=== PATIENT | female | born 1970 | race Caucasian/White ===

== ENCOUNTER 2017-06-14 12:28 | Emergency (ER) | payer BC, MEDICAID ==
--- NOTE | 2017-06-14 13:13 | ER Document Report ---
ED General - General Chief Complaint: Abdominal Pain Stated Complaint: ABDOMINAL PAIN Time Seen by Provider: 06/14/17 13:01 Mode of Arrival: Ambulatory Information source: Patient Notes: 46-year-old female history of cholecystectomy presents with complaint of right upper quadrant abdominal pain. Patient denies any fevers or chills admits to nausea TRAVEL OUTSIDE OF THE [place] IN LAST 30 DAYS: No - HPI Onset: Other - months Onset/Duration: Persistent Quality of pain: Achy Severity: Mild Pain Level: 1 Associated symptoms: None Exacerbated by: Food Relieved by: Denies Similar symptoms previously: Yes Recently seen / treated by doctor: No - Related Data Allergies/Adverse Reactions: No Known Drug Allergies Allergy (Unknown, Verified 06/14/17 12:36) Alexander Fuzz Allergy (Intermediate, Uncoded 06/14/17 12:36) Rash, itching Past Medical History - Social History Smoking Status: Never Smoker Cigarette use (# per day): No Chew tobacco use (# tins/day): No Smoking Education Provided: No Family History: Reviewed & Not Pertinent - Past Medical History Cardiac Medical History: Reports: Hx Hypertension - PIH - 160/92 at preop Denies: Hx Coronary Artery Disease, Hx Heart Attack Pulmonary Medical History: Reports: Hx Asthma Denies: Hx Bronchitis, Hx COPD, Hx Pneumonia Neurological Medical History: Denies: Hx Cerebrovascular Accident, Hx Seizures Renal/ Medical History: Denies: Hx Peritoneal Dialysis Musculoskeltal Medical History: Reports Hx Arthritis - Fingers, knees Past Surgical History: Denies: Hx Pacemaker - Immunizations Hx Diphtheria, Pertussis, Tetanus Vaccination: Yes Hx Pneumococcal Vaccination: 12/20/13 Review of Systems - Review of Systems Notes: REVIEW OF SYSTEMS: CONSTITUTIONAL : Denies fever, chills, or sweats. Denies recent illness. EENT: Denies eye, ear, throat, or mouth pain or symptoms. Denies nasal or sinus congestion or discharge. Denies throat, tongue, or mouth swelling or difficulty swallowing. CARDIOVASCULAR: Denies chest pain. Denies palpitations or racing or irregular heart beat. Denies ankle edema. RESPIRATORY: Denies cough, cold, or chest congestion. Denies shortness of breath, difficulty breathing, or wheezing. GASTROINTESTINAL: admits to abd pain GENITOURINARY: Denies difficulty urinating, painful urination, burning, frequency, blood in urine, or discharge. MUSCULOSKELETAL: Denies back or neck pain or stiffness. Denies joint pain or swelling. SKIN: Denies rash, lesions or sores. HEMATOLOGIC : Denies easy bruising or bleeding. LYMPHATIC: Denies swollen, enlarged glands. NEUROLOGICAL: Denies confusion or altered mental status. Denies passing out or loss of consciousness. Denies dizziness or lightheadedness. Denies headache. Denies weakness or paralysis or loss of use of either side. Denies problems with gait or speech. Denies sensory loss, numbness, or tingling. Denies seizures. PSYCHIATRIC: Denies anxiety or stress. Denies depression, suicidal ideation, or homicidal ideation. ALL OTHER SYSTEMS REVIEWED AND NEGATIVE. Dictation was performed using [employer] voice recognition software PHYSICAL EXAMINATION: GENERAL: Well-appearing, well-nourished and in no acute distress. HEAD: Atraumatic, normocephalic. EYES: Pupils equal round and reactive to light, extraocular movements intact, sclera anicteric, conjunctiva are normal. ENT: Nares patent, oropharynx clear without exudates. Moist mucous membranes. NECK: Normal range of motion, supple without lymphadenopathy LUNGS: Breath sounds clear to auscultation bilaterally and equal. No wheezes rales or rhonchi. HEART: Regular rate and rhythm without murmurs ABDOMEN: Soft, right flank pain Musculoskeletal: Normal range of motion, no pitting or edema. No cyanosis. NEUROLOGICAL: Cranial nerves grossly intact. Normal speech, normal gait. Normal sensory, motor exams PSYCH: Normal mood, normal affect. SKIN: Warm, Dry, normal turgor, no rashes or lesions noted. Physical Exam - Vital signs Vitals: Temp Pulse Resp BP Pulse Ox 98.5 F 79 20 185/116 H 99 06/14/17 12:37 06/14/17 12:37 06/14/17 12:37 06/14/17 12:37 06/14/17 12:37 Course - Re-evaluation Re-evalutation: 06/14/17 14:41 Lab work noted no significant abnormality except for hematuria, CT is pending at this time. 06/14/17 15:07 CT noted no acute abnormality 06/14/17 15:24 I believe this may be secondary to scar tissue postsurgical. Patient will be discharged to follow-up with surgical After performing a Medical Screening Examination, I estimate there is LOW risk for ACUTE APPENDICITIS, BOWEL OBSTRUCTION, ACUTE CHOLECYSTITIS, PERFORATED DIVERTICULITIS, INCARCERATED HERNIA, PANCREATITIS, PELVIC INFLAMMATORY DISEASE, PERFORATED ULCER, ECTOPIC , or TUBO-OVARIAN ABSCESS, thus I consider the discharge disposition reasonable. Also, there is no evidence or peritonitis , sepsis, or toxicity. I have reevaluated this patient multiple times and no significant life threatening changes are noted. The patient and I have discussed the diagnosis and risks, and we agree with discharging home with close follow-up with the understanding that symptoms and presentations can change. We also discussed returning to the Emergency Department immediately if new or worsening symptoms occur. We have discussed the symptoms which are most concerning (e.g., bloody stool, fever, changing or worsening pain, vomiting) that necessitate immediate return. - Vital Signs Vital signs: Temp Pulse Resp BP Pulse Ox 98.5 F 79 20 185/116 H 99 06/14/17 12:37 06/14/17 12:37 06/14/17 12:37 06/14/17 12:37 06/14/17 12:37 - Laboratory Result Diagrams: 06/14/17 13:25 06/14/17 13:25 Laboratory results interpreted by me: 06/14/17 13:25 Urine Protein 100 H Urine Blood LARGE H - Diagnostic Test Radiology reviewed: Image reviewed, Reports reviewed - no acute abnotrmality Discharge - Discharge Clinical Impression: RUQ abdominal pain Condition: Stable Disposition: HOME, SELF-CARE Instructions: Abdominal Pain ([facility]) Referrals: DONAVAN VYAS MD [ACTIVE STAFF] - Follow up tomorrow
[2017-06-14 13:38] LABS: ABSOLUTE BASOPHILS # (AUTO) 0.1 10^3/uL (0.0-0.2); ABSOLUTE EOSINOPHILS # (AUTO) 0.2 10^3/uL (0.0-0.6); ABSOLUTE LYMPHOCYTES (AUTO) 3.4 10^3/uL (0.5-4.7); ABSOLUTE MONOCYTES (AUTO) 0.5 10^3/uL (0.1-1.4); BASOPHILS % (AUTO) 0.8 % (0-2); EOSINOPHILS % (AUTO) 2.6 % (0-6); HEMATOCRIT 41.1 % (36.0-47.0); HEMOGLOBIN 14.1 g/dL (12.0-15.5); HGB HCT DIFFERENCE 1.2; LYMPHOCYTES % (AUTO) 36.5 % (13-45); MEAN CORPUSCULAR HEMOGLOBIN 31.2 pg (27.0-33.4); MEAN CORPUSCULAR HGB CONC 34.2 g/dL (32.0-36.0); MEAN CORPUSCULAR VOLUME 91 fl (80-97); MONOCYTES % (AUTO) 5.8 % (3-13); RED BLOOD COUNT 4.51 10^6/uL (3.72-5.28); RED CELL DISTRIBUTION WIDTH 13.1 % (11.5-14.0); SEGMENTED NEUTROPHILS % (AUTO) 54.3 % (42-78); WHITE BLOOD COUNT 9.2 10^3/uL (4.0-10.5)
[2017-06-14 13:44] LABS: APPEARANCE,URINE CLEAR; BILIRUBIN,URINE NEGATIVE (NEGATIVE); GLUCOSE, URINE NEGATIVE (NEGATIVE); KETONES,URINE NEGATIVE (NEGATIVE); LEUKOCYTE ESTERASE,URINE NEGATIVE (NEGATIVE); NITRITE,URINE NEGATIVE (NEGATIVE); PROTEIN,URINE 100 mg/dL (NEGATIVE); URINE SPECIFIC GRAVITY 1.004; UROBILINOGEN,URINE NEGATIVE mg/dL (<2.0)
[2017-06-14 13:57] LABS: ALANINE AMINOTRANSFERASE 33 U/L (9-52); ALBUMIN 4.2 g/dL (3.5-5.0); ALKALINE PHOSPHATASE 66 U/L (38-126); ANION GAP 10 (5-19); ASPARTATE AMINO TRANSFERASE 26 U/L (14-36); BILIRUBIN,DIRECT 0.3 mg/dL (0.0-0.4); BILIRUBIN,TOTAL 0.5 mg/dL (0.2-1.3); BLOOD UREA NITROGEN 12 mg/dL (7-20); CALCIUM 9.1 mg/dL (8.4-10.2); CARBON DIOXIDE 27 mmol/L (22-30); CHLORIDE 105 mmol/L (98-107); CREATININE RESULT 0.65 mg/dL (0.52-1.25); GLUCOSE 82 mg/dL (75-110); LIPASE 115.8 U/L (23-300); POTASSIUM 4.1 mmol/L (3.6-5.0); SODIUM 141.6 mmol/L (137-145); TOTAL PROTEIN 7.7 g/dL (6.3-8.2)
--- NOTE | 2017-06-14 14:57 | RADIOLOGY REPORT (SQ) ---
EXAM DESCRIPTION: CT LTD RENAL STONE PROTOCOL ON COMPLETED DATE/TIME: 06/14/2017 2:40 pm REASON FOR STUDY: hematura COMPARISON: None. TECHNIQUE: CT scan of the abdomen and pelvis performed without intravenous or oral contrast. Images reviewed with lung, soft tissue, and bone windows. Reconstructed coronal and sagittal MPR images revi ewed. All images stored on PACS. All CT scanners at this facility use dose modulation, iterative reconstruction, and/or weight based d osing when appropriate to reduce radiation dose to as low as reasonably achievable (ALARA). [facility]: Dose Right [facility]: CareDose [facility]: Dose Right [facility]: Teradose 4D [facility]: Smart Technologies RADIATION DOSE: Up-to-date CT equipment and radiation dose reduction techniques were employed. CTDIv ol: 13.8 mGy. DLP: 675 mGy-cm.mGy. LIMITATIONS: None. FINDINGS: LOWER CHEST: No significant findings. No nodules or infiltrates. NON-CONTRASTED LIVER, SPLEEN, ADRENALS: Evaluation limited by lack of IV contrast. No identified sign ificant masses. PANCREAS: No masses. No peripancreatic inflammatory changes. GALLBLADDER: Surgically absent. RIGHT KIDNEY AND URETER: No suspicious masses. Assessment limited by lack of IV contrast. No signif icant calcifications. No hydronephrosis or hydroureter. LEFT KIDNEY AND URETER: No suspicious masses. Assessment limited by lack of IV contrast. No signifi cant calcifications. No hydronephrosis or hydroureter. AORTA AND RETROPERITONEUM: No aneurysm. No retroperitoneal masses or adenopathy. BOWEL AND PERITONEAL CAVITY: No obvious masses or inflammatory changes. No free fluid. APPENDIX: Small appendicolith. PELVIS, BLADDER, AND ABDOMINAL WALL:No abnormal masses. No free fluid. Bladder normal. BONES: No significant findings. OTHER: No other significant finding. IMPRESSION: No acute abnormality in the abdomen or pelvis. TECHNICAL DOCUMENTATION: JOB ID: [id number] Quality ID # [id number]: Final reports with documentation of one or more dose reduction techniques (e.g., Au tomated exposure control, adjustment of the mA and/or kV according to patient size, use of iterative reconstruction technique) 2010 [employer]- All Rights Reserved
[2017-06-14 15:27] VITALS: BP 163/105
== END 2017-06-14 15:35 | disposition home or self-care (01) ==
LOC: ER 12:28
DX: R10.11 Right upper quadrant pain (principal)
CPT/HCPCS: 36415; 76380; 80053; 81001; 83690; 85025; 99284

== ENCOUNTER 2017-10-16 13:20 | Emergency (ER) | payer SELFPAY ==
[2017-10-16] MEDS ORDERED: CLONIDINE HCL 0.2 MG TABLET PO ONE (14:02)
--- NOTE | 2017-10-16 14:13 | ER Document Report ---
ED Medical Screen (RME) - General Chief Complaint: High Blood Pressure Stated Complaint: BLOOD PRESSURE ISSUES Time Seen by Provider: 10/16/17 13:55 Mode of Arrival: Ambulatory Information source: Patient TRAVEL OUTSIDE OF THE [place] IN LAST 30 DAYS: No - HPI Onset: Other - "WEEKS" Onset/Duration: Gradual Quality of pain: No pain Associated Symptoms: None Similar symptoms previously: No Recently seen / treated by doctor: Yes - YESTERDAY Notes: 10/16/17 14:09 Patient apparently has history of chronic depression, was seen at urgent care yesterday for an unrelated problem and was found to be hypertensive. Provider at urgent care elected to treat her for a "significant bacterial infection" but declined to treat the hypertension, advised her to see another practitioner for blood pressure management. - Related Data Allergies/Adverse Reactions: No Known Drug Allergies Allergy (Unknown, Verified 10/16/17 13:21) [place] Fuzz Allergy (Intermediate, Uncoded 06/14/17 12:36) Rash, itching Home Medications: Current Home Medications Citalopram Hydrobromide [Citalopram HBr] 1 tab PO DAILY 10/16/17 [History] Trazodone HCl 75 mg PO QHS 10/16/17 [History] Past Medical History - General Information source: Patient - Social History Chew tobacco use (# tins/day): No Frequency of alcohol use: Occasional Drug Abuse: Marijuana Lives with: Spouse/Significant other - Past Medical History Cardiac Medical History: Reports: Hx Hypertension - PIH - 160/92 at preop Denies: Hx Coronary Artery Disease, Hx Heart Attack Pulmonary Medical History: Reports: Hx Asthma Denies: Hx Bronchitis, Hx COPD, Hx Pneumonia Neurological Medical History: Denies: Hx Cerebrovascular Accident, Hx Seizures Renal/ Medical History: Denies: Hx Peritoneal Dialysis Musculoskeltal Medical History: Reports Hx Arthritis - Fingers, knees Past Surgical History: Reports: Hx Section, Hx Cholecystectomy, Hx Tubal Ligation. Denies: Hx Pacemaker - Immunizations Hx Diphtheria, Pertussis, Tetanus Vaccination: Yes Review of Systems - Review of Systems Constitutional: No symptoms reported. denies: Chills, Fever EENT: No symptoms reported Cardiovascular: No symptoms reported, Edema - HANDS & FEET. denies: Chest pain Respiratory: Short of breath Gastrointestinal: No symptoms reported Female Genitourinary: denies: Musculoskeletal: No symptoms reported Skin: No symptoms reported Neurological/Psychological: No symptoms reported Physical Exam - Vital signs Vitals: Temp Pulse Resp BP Pulse Ox 99.4 F 72 20 184/104 H 98 10/16/17 13:28 10/16/17 13:28 10/16/17 13:28 10/16/17 13:28 10/16/17 13:28 Interpretation: Hypertensive. No: Tachycardic, Tachypneic - General General appearance: Appears well, Alert In distress: None - HEENT Head: Normocephalic Eyes: Normal Conjunctiva: Normal Ears: Normal Nasal: Normal Mouth/Lips: Normal Mucous membranes: Normal - Respiratory Respiratory status: No respiratory distress Breath sounds: Normal - Cardiovascular Rhythm: Regular Heart sounds: Normal auscultation Murmur: No - Abdominal Inspection: Normal, Obese - Extremities General upper extremity: Normal inspection General lower extremity: Normal inspection. No: Edema - Neurological Neuro grossly intact: Yes Cognition: Normal Orientation: AAOx4 - Psychological Associated symptoms: Normal affect, Normal mood - Skin Skin Temperature: Warm Skin Moisture: Dry Skin Color: Normal Skin Turgor: Elastic Course - Vital Signs Vital signs: Temp Pulse Resp BP Pulse Ox 99.4 F 72 20 184/104 H 98 10/16/17 13:28 10/16/17 13:28 10/16/17 13:28 10/16/17 13:28 10/16/17 13:28 Doctor's Discharge - Discharge Clinical Impression: Hypertension, essential Condition: Stable Disposition: HOME, SELF-CARE Instructions: High Blood Pressure, Requiring Treatment ([facility]), Clonidine ( Catapres) ([facility]), Hydrochlorothiazide ([facility]) Additional Instructions: BEGIN TAKING HYDROCHLOROTHIAZIDE TODAY, SOON YOU GET IT. CONTINUE OTHER MEDS PRESCRIBED. FOLLOW UP WITH YOUR PRIMARY CARE PROVIDER FOR ON-GOING MANAGEMENT OF BLOOD PRESSURE. Prescriptions: Hydrochlorothiazide 25 mg PO QAM #20 tablet
[2017-10-16 14:37] VITALS: BP 169/100
== END 2017-10-16 14:40 | disposition home or self-care (01) ==
LOC: ER 13:20
DX: I10 Essential (primary) hypertension (principal); Z79.899 Other long term (current) drug therapy
CPT/HCPCS: 99283

== ENCOUNTER → 2018-11-11 | Outpatient (CLI) | payer MEDICAID ==
--- NOTE | 2018-11-11 12:40 | WOMENS IMAGING REPORT ---
EXAM DESCRIPTION: BILAT SCREENING MAMMO W/CAD COMPLETED DATE/TIME: 11/11/2018 10:53 am REASON FOR STUDY: SCREENING MAMMO Z12.31 ENCNTR SCREEN MAMMOGRAM FOR MALIGNANT NEOPLASM OF SAMANTHA COMPARISON: No previous available TECHNIQUE: Standard craniocaudal and mediolateral oblique views of each breast recorded using digita l acquisition. LIMITATIONS: None. FINDINGS: No masses, calcifications or architectural distortion. No areas of suspicion. Read with the assistance of CAD. .[facility] - R2 Cenova Version 1.3 .[facility] Imaging - R2 Cenova Version 1.3 .[facility] Imaging - R2 Cenova Version 2.4 .[facility] - R2 Cenova Version 2.4 .[facility] - R2 [employer] Assessment Specialist Version 9.2 IMPRESSION: NORMAL MAMMOGRAM. BIRADS 1. BREAST DENSITY: b. There are scattered areas of fibroglandular density. BIRAD: 1 NEGATIVE RECOMMENDATION: ROUTINE SCREENING Please continue yearly bilateral screening mammography/tomosynthesis in October 2019 COMMENT: Please continue yearly bilateral screening mammography/tomosynthesis in October 2019 The patient has been notified of the results by letter per SA requirements. Additional notification policies are in place for contacting patient with suspicious or incomplete findings. Quality ID #[id number]: The [employer] recommends an annual screening mammogram for women aged 40 years or over. This facility utilizes a reminder system to ensure that all patients receive reminder letters, and/or direct phone calls for appointments. This includes reminders for routine scr eening mammograms, diagnostic mammograms, or other Breast Imaging Interventions when appropriate. Th is patient will be placed in the appropriate reminder system. The [employer] (ACR) has developed recommendations for screening MRI of the breast s in certain patient populations, to be used in conjunction with mammography. Breast MRI surveillanc e may be appropriate for women with more than 20% lifetime risk of developing breast cancer as deter mined by genetic testing, significant family history of the disease, or history of mantle radiation f or Hodgkins Disease. ACR Practice Guidelines 2008. TECHNICAL DOCUMENTATION: FINDING NUMBER: (1) ASSESSMENT: (1) JOB ID: [id number] [employer]- All Rights Reserved Reading location - IP/workstation name: [email or web address]
== END ==
LOC: WI 10:26
PROVIDERS: ATTEND Nurse Practitioner Family
DX: Z12.31 Encounter for screening mammogram for malignant neoplasm of breast (principal)
CPT/HCPCS: 77067

== ENCOUNTER → 2018-12-03 | Outpatient (CLI) | payer MEDICAID ==
--- NOTE | 2018-12-03 10:38 | WOMENS IMAGING REPORT ---
EXAM DESCRIPTION: U/S ABDOMEN LIMITED COMPLETED DATE/TIME: 12/03/2018 10:10 am REASON FOR STUDY: R10.11 RIGHT UPPER QUADRANT PAIN R10.11 RIGHT UPPER QUADRANT PAIN COMPARISON: None. TECHNIQUE: Dynamic and static grayscale images acquired of the abdomen and recorded on PACS. Additio nal selected color Doppler and spectral images recorded. Note: Exam does not meet criteria for a complete doppler/duplex scan LIMITATIONS: Study limited due to acoustical interference from fat or from air in the bowel. FINDINGS: PANCREAS: No visualized masses. Duct normal caliber as seen. LIVER: Echotexture is coarse with increased echogenicity consistent with fatty infiltration. LIVER VASCULATURE: Normal directional flow of the main portal vein and hepatic veins. GALLBLADDER: Surgically absent. ULTRASOUND-DETECTED JACINTO'S SIGN: Not applicable. INTRAHEPATIC DUCTS AND COMMON DUCT: CBD and intrahepatic ducts normal caliber. No filling defects. INFERIOR VENA CAVA: Poorly visualized. AORTA: Poorly visualized. RIGHT KIDNEY: Normal size. Normal echogenicity. No solid or suspicious masses. No hydronephrosis. No calcifications. PERITONEAL AND PLEURAL SPACES: No ascites or effusions. OTHER: No other significant finding. IMPRESSION: FATTY INFILTRATION OF THE LIVER. NO OTHER SIGNIFICANT FINDING IN THE VISUALIZED ABDOMEN. TECHNICAL DOCUMENTATION: JOB ID: [id number] [employer]- All Rights Reserved Reading location - IP/workstation name: [facility]
== END ==
LOC: WI 09:30
PROVIDERS: ATTEND Nurse Practitioner Family
DX: R10.11 Right upper quadrant pain (principal)
CPT/HCPCS: 76705

== ENCOUNTER 2019-03-09 05:33 | Day surgery (SDC) | payer MEDICAID ==
--- NOTE | 2019-03-03 12:25 | RADIOLOGY REPORT (SQ) ---
EXAM DESCRIPTION: CHEST PA/LATERAL COMPLETED DATE/TIME: 03/03/2019 11:48 am REASON FOR STUDY: PRE-OP COMPARISON: 10/21/2007 EXAM PARAMETERS: NUMBER OF VIEWS: two views TECHNIQUE: Digital Frontal and Lateral radiographic views of the chest acquired. RADIATION DOSE: NA LIMITATIONS: none FINDINGS: LUNGS AND PLEURA: No opacities, masses or pneumothorax. No pleural effusion. MEDIASTINUM AND HILAR STRUCTURES: No masses or contour abnormalities. HEART AND VASCULAR STRUCTURES: Heart normal size. No evidence for failure. BONES: No acute findings. HARDWARE: None in the chest. OTHER: No other significant finding. IMPRESSION: NO SIGNIFICANT RADIOGRAPHIC FINDING IN THE CHEST. TECHNICAL DOCUMENTATION: JOB ID: [id number] [employer]- All Rights Reserved Reading location - IP/workstation name: [email or web address]
[2019-03-03 12:35] LABS: HEMATOCRIT 38.6 % (36.0-47.0); HEMOGLOBIN 13.5 g/dL (12.0-15.5); MEAN CORPUSCULAR HEMOGLOBIN 31.2 pg (27.0-33.4); MEAN CORPUSCULAR HGB CONC 34.9 g/dL (32.0-36.0); MEAN CORPUSCULAR VOLUME 90 fl (80-97); PLATELET COUNT 299 10^3/uL (150-450); RED BLOOD COUNT 4.32 10^6/uL (3.72-5.28); RED CELL DISTRIBUTION WIDTH 13.3 % (11.5-14.0); WHITE BLOOD COUNT 8.1 10^3/uL (4.0-10.5)
[2019-03-03 12:41] LABS: APPEARANCE,URINE CLEAR; BILIRUBIN,URINE NEGATIVE (NEGATIVE); COLOR,URINE YELLOW; GLUCOSE, URINE NEGATIVE (NEGATIVE); KETONES,URINE NEGATIVE (NEGATIVE); LEUKOCYTE ESTERASE,URINE NEGATIVE (NEGATIVE); NITRITE,URINE NEGATIVE (NEGATIVE); PROTEIN,URINE 100 mg/dL (NEGATIVE); URINE SPECIFIC GRAVITY 1.011; UROBILINOGEN,URINE NEGATIVE mg/dL (<2.0)
[2019-03-03 13:06] LABS: ALANINE AMINOTRANSFERASE 30 U/L (9-52); ALKALINE PHOSPHATASE 64 U/L (38-126); ANION GAP 6 (5-19); ASPARTATE AMINO TRANSFERASE 27 U/L (14-36); BILIRUBIN,DIRECT 0.2 mg/dL (0.0-0.4); BILIRUBIN,TOTAL 0.5 mg/dL (0.2-1.3); BLOOD UREA NITROGEN 14 mg/dL (7-20); CALCIUM 9.9 mg/dL (8.4-10.2); CARBON DIOXIDE 32 mmol/L (22-30); CHLORIDE 101 mmol/L (98-107); GLUCOSE 90 mg/dL (75-110); POTASSIUM 4.3 mmol/L (3.6-5.0); SODIUM 139.2 mmol/L (137-145); TOTAL PROTEIN 7.1 g/dL (6.3-8.2)
--- NOTE | 2019-03-03 21:50 | EKG REPORT ---
SEVERITY:- NORMAL ECG - SINUS RHYTHM : Confirmed by: Katelin Hernandez MD 03-Mar-2019 21:49:22
[~2019-03-09 05:33] MED LIST: ALBUTEROL SULFATE 0.083% NEB 2.5 MG/3 ML AMPUL NEB PRN; CEFAZOLIN 1 GM/D5W RTU 1 GM/50 ML RTUPB IV PRN; LACTATED RINGERS 1000 ML IV PRN; LIDOCAINE 0.5% INJ-PF (5 MG/ML) 50 ML SDV SUBCUT PRN
[2019-03-09] MEDS ORDERED: CEFAZOLIN 1 GM/D5W RTU 1 GM/50 ML RTUPB IV ONE (05:39)
[2019-03-09] MEDS ORDERED: HYDROMORPHONE HCL INJ/PF 2 MG/ML AMPULE ONE (06:37)
[2019-03-09] MEDS ORDERED: FENTANYL CITRATE INJ/PF 100 MCG/2 ML AMPUL ONE (06:37)
[2019-03-09] MEDS ORDERED: DEXAMETHASONE SOD PHOSPHATE INJ 4 MG/1 ML VIAL ONE (06:37)
[2019-03-09] MEDS ORDERED: ONDANSETRON HCL INJ/PF 4 MG/2 ML SDV ONE (06:37)
[2019-03-09] MEDS ORDERED: MIDAZOLAM 2 MG/2 ML INJ ONE (06:37)
[2019-03-09] MEDS ORDERED: ACETAMINOPHEN 1,000 MG/100 ML RTUPB IV ONE (06:38)
[2019-03-09] MEDS ORDERED: PROPOFOL INJ 200 MG/20 ML VIAL IV ONE (06:38)
[2019-03-09] MEDS ORDERED: ALBUTEROL SULFATE 0.083% NEB 2.5 MG/3 ML AMPUL NEB ONE (06:50)
[2019-03-09] MEDS ORDERED: DIPHENHYDRAMINE HCL 50 MG/ML VIAL IV PRN (07:50)
[2019-03-09] MEDS ORDERED: PROMETHAZINE HCL INJ 25 MG/1 ML VIAL IV PRN (07:50)
[2019-03-09] MEDS ORDERED: FENTANYL CITRATE INJ/PF 100 MCG/2 ML AMPUL IV PRN ×3 (07:50)
[2019-03-09] MEDS ORDERED: MEPERIDINE HCL/PF INJ 25 MG/1 ML DISP.SYRIN IV PRN (07:50)
--- NOTE | 2019-03-09 08:59 | OPERATIVE REPORT E ---
Operative Report NAME: BLANCHE CAMACHO : 1970 AGE: 48Y DATE OF SURGERY: 03/09/2019 ROOM: PREOPERATIVE DIAGNOSES: 1. Chronic abscess of a Pfannenstiel incision. 2. Pelvic organ prolapse with cystocele and rectocele. 3. Dysmenorrhea. POSTOPERATIVE DIAGNOSES: 1. Chronic abscess of a Pfannenstiel incision. 2. Pelvic organ prolapse with cystocele and rectocele. 3. Dysmenorrhea. OPERATION: 1. Excision of fibrotic tissue from Pfannenstiel incision. 2. TVH. 3. Posterior repair. SURGEON: Monika OLIVEROS M.D. ANESTHESIA: General. ESTIMATED BLOOD LOSS: Less than 100 mL. TISSUE REMOVED: Uterus and fibrotic tissue. PROCEDURE: The patient was placed in dorsal lithotomy position, prepped and draped in sterile fashion. The area of the incision was grasped with an Allis clamp and sharply incised, and fibrotic tissue was removed. The defect was closed with interrupted suture of 2-0 Vicryl. Attention was turned to the pelvis where the cervix was grasped with a Frank thyroid clamp, posterior cul-de-sac entered with sharp dissection, posterior parietal peritoneum sutured to the posterior cuff with 2-0 Vicryl. Left uterosacral was clamped, divided, and sutured with Vicryl, repeated on the right. The cervix was circumscribed. The anterior peritoneum was entered with sharp dissection. Serial clamps were used on each side of the uterus, each pedicle being divided and sutured with 2-0 Vicryl. This was continued to the level of the utero-ovarian ligaments, which were crossclamped, and the uterus removed. Utero-ovarian ligaments were sutured with a free tie of 2-0 Vicryl followed by a suture tie of 2-0 Vicryl. Pedicles were inspected and hemostasis was noted. Cuff was closed with interrupted 2-0 Vicryl. Intraoperatively it was noted that the cystocele repair was not warranted. The posterior repair was then accomplished by grasping the vaginal mucosa at the remnants of the hymenal ring, entering crosswise, and divided in the midline just below the cuff. The underlying rectovaginal tissue was bluntly and sharply divided and interrupted 2-0 Vicryl was placed, plicating the tissue in the midline. Excessive vaginal mucosa was removed. The defect was closed with a running stitch of 2-0 Vicryl. The patient tolerated the procedure well. Urine remained clear throughout the procedure. She was taken to the recovery room in good condition. DICTATING PHYSICIAN: Monika OLIVEROS M.D. [id number] PHY#: [id number] ID: [id number] JOB#: [id number] ACCT: [id number] cc:Monika OLIVEROS M.D. >
[2019-03-09] MEDS: METOPROLOL TARTRATE PF/INJ 5 MG/5 ML SDV IV ONE ×2 (09:00→09:55)
[2019-03-09] MEDS: NALOXONE HCL INJ/PF 0.4 MG/1 ML SDV ONE ×2 (09:25→10:35)
[2019-03-09] MEDS ORDERED: SUCCINYLCHOLINE CHLORIDE INJ 200 MG/10 ML VIAL ONE (09:39)
[2019-03-09] MEDS ORDERED: ROCURONIUM BROMIDE INJ 50 MG/5 ML VIAL IV ONE (09:39)
[2019-03-09] MEDS ORDERED: OXYCODONE-ACETAMINOPHEN 5-325 MG TABLET PO PRN (09:48)
[2019-03-09] MEDS ORDERED: ONDANSETRON HCL 8 MG TABLET PO PRN (09:49)
[2019-03-09] MEDS ORDERED: KETOROLAC TROMETHAMINE INJ/PF 30 MG/1 ML SDV ONE (10:43)
[2019-03-09] MEDS: HYDRALAZINE HCL INJ/PF 20 MG/1 ML SDV ONE ×3 (11:10→11:50)
[2019-03-09] MEDS ORDERED: DEXTROSE 5%-LACTATED RINGERS 1,000 ML IV PRN (13:30)
[2019-03-09] MEDS ORDERED: IBUPROFEN 800 MG TABLET PO SCH (14:00)
[2019-03-09 15:50] VITALS: BP 158/98
[2019-03-09] MEDS ORDERED: ONDANSETRON 4 MG TAB.RAPDIS PO ONE (17:00)
== END 2019-03-09 17:30 | disposition home or self-care (01) ==
LOC: OROUT 05:33 → EDSTATUS 07:30 → 2S 12:56 → OROUT 17:30
PROVIDERS: ATTEND Obstetrics & Gynecology Gynecology
DX: N81.6 Rectocele (principal); T81.49XA Infection following a procedure, other surgical site, initial encounter; L02.211 Cutaneous abscess of abdominal wall; L91.0 Hypertrophic scar; N81.89 Other female genital prolapse; N81.10 Cystocele, unspecified; N94.6 Dysmenorrhea, unspecified; N72 Inflammatory disease of cervix uteri; I10 Essential (primary) hypertension; J45.909 Unspecified asthma, uncomplicated; I25.10 Atherosclerotic heart disease of native coronary artery without angina pectoris; Z79.51 Long term (current) use of inhaled steroids; Z79.899 Other long term (current) drug therapy
CPT/HCPCS: 93010; 93005; 86900; 86901; 36415 ×2; 86850; 84132; 85027; 81025; 80053; 81001; 88307 ×2; 71046; 58260; 57250; 22902; J2250; J0690; J3490 ×2; J1100; S0119; J3010; J0360; J1885; J2310; J1170; J0330; J2405; J2704; J0131; 944

== ENCOUNTER 2019-08-30 08:55 | Day surgery (SDC) | payer MEDICAID ==
[~2019-08-30 08:55] MED LIST changes: -ALBUTEROL SULFATE 0.083% NEB 2.5 MG/3 ML AMPUL NEB PRN; -CEFAZOLIN 1 GM/D5W RTU 1 GM/50 ML RTUPB IV PRN; -LACTATED RINGERS 1000 ML IV PRN; -LIDOCAINE 0.5% INJ-PF (5 MG/ML) 50 ML SDV SUBCUT PRN; +PROPOFOL INJ 200 MG/20 ML VIAL IV ONE
[2019-08-30] MEDS ORDERED: ALBUTEROL SULFATE 0.083% NEB 2.5 MG/3 ML AMPUL NEB ONE (09:35)
[2019-08-30 11:08] VITALS: BP 142/82
--- NOTE | 2019-08-30 13:47 | Operative Report ---
Operative Report DATE OF SURGERY: 08/30/19 Operative Report: The risks benefits and alternatives of the procedure explained to the patient in detail and informed consent is obtained.A GIF Olympus video scope was inserted into the patient's mouth and hypopharynx ,the esophagus is identified intubated and insufflated, the scope was then advanced through the esophagus stomach and duodenum, retroflexion maneuver is done ,the esophagus stomach and first and second portions of the duodenum examined. PREOPERATIVE DIAGNOSIS: Epigastric pain rule out peptic ulcer disease POSTOPERATIVE DIAGNOSIS: Gastritis status post biopsy without Helicobacter pylori. Hiatal hernia OPERATION: EGD with biopsy SURGEON: YASMANI CARBAJAL ANESTHESIA: LMAC TISSUE REMOVED OR ALTERED: As noted above. COMPLICATIONS: None. ESTIMATED BLOOD LOSS: None. INTRAOPERATIVE FINDINGS: As noted above. PROCEDURE: Patient tolerated the procedure well. No immediate postprocedure complications are noted. Patient is discharged in good condition. Discharge date 08/30/2019. Discharge diet: Regular. Discharge activity: Regular. 2 to 3-week follow-up to discuss findings. Patient is instructed to call the office or proceed to the emergency room should there be any further questions. Wait on the pathology.
== END 2019-08-30 11:06 | disposition home or self-care (01) ==
LOC: END 08:55
PROVIDERS: ATTEND Internal Medicine Gastroenterology
DX: K29.70 Gastritis, unspecified, without bleeding (principal); J45.909 Unspecified asthma, uncomplicated; I10 Essential (primary) hypertension; F17.210 Nicotine dependence, cigarettes, uncomplicated; K44.9 Diaphragmatic hernia without obstruction or gangrene; F12.90 Cannabis use, unspecified, uncomplicated; J45.40 Moderate persistent asthma, uncomplicated; Z79.899 Other long term (current) drug therapy; Z79.51 Long term (current) use of inhaled steroids
CPT/HCPCS: 43239; 88342 ×2; 88305 ×2; 00731; J2704; 731

== ENCOUNTER → 2019-10-27 | Outpatient (CLI) | payer MEDICAID ==
--- NOTE | 2019-10-27 11:26 | RADIOLOGY REPORT (SQ) ---
EXAM DESCRIPTION: BARIUM SWALLOW ESOPHAGUS COMPLETED DATE/TIME: 10/27/2019 9:24 am REASON FOR STUDY: K21.9 GASTRO-ESOPHAGEAL REFLUX DISEASE WITHOUT ESOPHAGITIS K21.9 GASTRO-ESOPHAGEA L REFLUX DISEASE WITHOUT ESOPHAGITIS COMPARISON: None. TECHNIQUE: Under fluoroscopic guidance, patient ingested effervescent granules followed by thick and thin barium. Fluoroscopic spot images and routine radiographic images acquired and stored on PACS. 12 MM BARIUM TABLET GIVEN: Yes. No significant delay in passage. LIMITATIONS: None. FLUOROSCOPY TIME: FLUORO TIME: 1 minutes 13 seconds. 7 images saved to PACS. FINDINGS: NEUROMUSCULAR COORDINATION OF SWALLOW: Normal. No aspiration. ESOPHAGEAL MOTILITY: Normal peristalsis. No esophageal spasm. ESOPHAGEAL MUCOSA: Normal mucosa without masses or ulceration. GASTRO-ESOPHAGEAL JUNCTION: Small sliding hiatal hernia with mild gastroesophageal reflux. 12 mm bar ium tablet passed through the GE junction without delay. NON-GI TRACT STRUCTURES: No significant finding. OTHER: No other significant finding. IMPRESSION: SMALL SLIDING HIATAL HERNIA WITH MILD GASTROESOPHAGEAL REFLUX. COMMENT: Quality ID 145: Final reports for procedures using fluoroscopy that document radiation exp osure indices, or exposure time and number of fluorographic images (if radiation exposure indices are not available) TECHNICAL DOCUMENTATION: JOB ID: [id number] [employer]- All Rights Reserved Reading location - IP/workstation name: [email or web address] [id number]
== END ==
LOC: RAD 08:40
PROVIDERS: ATTEND Surgery
DX: K21.9 Gastro-esophageal reflux disease without esophagitis (principal); K44.9 Diaphragmatic hernia without obstruction or gangrene
CPT/HCPCS: 74220

== ENCOUNTER → 2019-11-18 | Outpatient (CLI) | payer MEDICAID ==
--- NOTE | 2019-11-18 10:45 | WOMENS IMAGING REPORT ---
EXAM DESCRIPTION: BILAT SCREENING MAMMO W/CAD COMPLETED DATE/TIME: 11/18/2019 9:41 am REASON FOR STUDY: Z12.31 SCREENING MAMMO Z12.31 ENCNTR SCREEN MAMMOGRAM FOR MALIGNANT NEOPLASM OF B RE COMPARISON: 2018 EXAM PARAMETERS: Standard craniocaudal and mediolateral oblique views of each breast recorded using digital acquisition. Read with the assistance of CAD. .[facility] - R2 [employer] Mender Version 9.2 LIMITATIONS: None. FINDINGS: No suspicious masses, suspicious calcifications or architectural distortion. No areas of c oncern. IMPRESSION: Negative MAMMOGRAM. BIRADS 1 BREAST DENSITY: b. There are scattered areas of fibroglandular density. BIRAD: ASSESSMENT: 1 NEGATIVE RECOMMENDATION: ROUTINE SCREENING COMMENT: The patient has been notified of the results by letter per MQSA requirements. Additional no tification policies are in place for contacting patient with suspicious or incomplete findings. Quality ID #[id number]: The [employer] recommends an annual screening mammogram for women aged 40 years or over. This facility utilizes a reminder system to ensure that all patients receive reminder letters, and/or direct phone calls for appointments. This includes reminders for routine scr eening mammograms, diagnostic mammograms, or other Breast Imaging Interventions when appropriate. Th is patient will be placed in the appropriate reminder system. TECHNICAL DOCUMENTATION: FINDING NUMBER: (1) ASSESSMENT: (1) JOB ID: [id number] [employer]- All Rights Reserved Reading location - IP/workstation name: [email or web address]
== END ==
LOC: WI 09:25
PROVIDERS: ATTEND Nurse Practitioner Family
DX: Z12.31 Encounter for screening mammogram for malignant neoplasm of breast (principal)
CPT/HCPCS: 77067

== ENCOUNTER → 2020-01-05 | Day surgery (SDC) | payer MEDICAID ==
[~2020-01-05] MED LIST changes: +LIDOCAINE 2% JELLY 5 ML TUBE ONE; -PROPOFOL INJ 200 MG/20 ML VIAL IV ONE
== END ==
LOC: END 08:44
PROVIDERS: ATTEND Surgery
DX: K21.9 Gastro-esophageal reflux disease without esophagitis (principal); K44.9 Diaphragmatic hernia without obstruction or gangrene
CPT/HCPCS: 91010; J3490

== ENCOUNTER → 2020-01-31 | Outpatient (CLI) | payer MEDICAID ==
--- NOTE | 2020-01-31 10:18 | RADIOLOGY REPORT (SQ) ---
EXAM DESCRIPTION: CHEST PA/LATERAL COMPLETED DATE/TIME: 01/31/2020 9:52 am REASON FOR STUDY: PRE OP COMPARISON: 03/03/2019 EXAM PARAMETERS: NUMBER OF VIEWS: two views TECHNIQUE: Digital Frontal and Lateral radiographic views of the chest acquired. RADIATION DOSE: NA LIMITATIONS: none FINDINGS: LUNGS AND PLEURA: No opacities, masses or pneumothorax. No pleural effusion. MEDIASTINUM AND HILAR STRUCTURES: No masses or contour abnormalities. HEART AND VASCULAR STRUCTURES: Heart normal size. No evidence for failure. BONES: No acute findings. HARDWARE: None in the chest. OTHER: No other significant finding. IMPRESSION: NO SIGNIFICANT RADIOGRAPHIC FINDING IN THE CHEST. TECHNICAL DOCUMENTATION: JOB ID: [id number] 2010 [employer]- All Rights Reserved Reading location - IP/workstation name: [email or web address]
[2020-01-31 10:41] LABS: HEMATOCRIT 38.8 % (36.0-47.0); HEMOGLOBIN 13.2 g/dL (12.0-15.5); MEAN CORPUSCULAR HEMOGLOBIN 31.4 pg (27.0-33.4); MEAN CORPUSCULAR HGB CONC 34.1 g/dL (32.0-36.0); MEAN CORPUSCULAR VOLUME 92 fl (80-97); PLATELET COUNT 344 10^3/uL (150-450); RED BLOOD COUNT 4.22 10^6/uL (3.72-5.28); RED CELL DISTRIBUTION WIDTH 13.1 % (11.5-14.0); WHITE BLOOD COUNT 9.9 10^3/uL (4.0-10.5)
[2020-01-31 11:09] LABS: ANION GAP 7 (5-19); BLOOD UREA NITROGEN 15 mg/dL (7-20); CALCIUM 9.9 mg/dL (8.4-10.2); CARBON DIOXIDE 33 mmol/L (22-30); CHLORIDE 100 mmol/L (98-107); GLUCOSE 107 mg/dL (75-110); POTASSIUM 4.2 mmol/L (3.6-5.0)
--- NOTE | 2020-01-31 15:37 | EKG REPORT ---
SEVERITY:- BORDERLINE ECG - SINUS RHYTHM BORDERLINE T WAVE ABNORMALITIES : Confirmed by: Katelin Hernandez MD 31-Jan-2020 15:36:59
== END ==
LOC: OD 08:55 → EDSTATUS 02-28 07:30
PROVIDERS: ATTEND Surgery
DX: Z01.818 Encounter for other preprocedural examination (principal); K44.9 Diaphragmatic hernia without obstruction or gangrene; K21.9 Gastro-esophageal reflux disease without esophagitis; J45.909 Unspecified asthma, uncomplicated; I10 Essential (primary) hypertension; M94.0 Chondrocostal junction syndrome [Tietze]; R05 Cough
CPT/HCPCS: 36415; 71046; 80048; 85027; 93005; 93010

== ENCOUNTER 2020-04-14 05:32 | Observation (INO) | payer MEDICAID ==
[2020-04-07 10:37] LABS: HEMATOCRIT 38.9 % (36.0-47.0); HEMOGLOBIN 13.6 g/dL (12.0-15.5); MEAN CORPUSCULAR HEMOGLOBIN 31.5 pg (27.0-33.4); MEAN CORPUSCULAR VOLUME 90 fl (80-97); PLATELET COUNT 305 10^3/uL (150-450); RED BLOOD COUNT 4.33 10^6/uL (3.72-5.28); RED CELL DISTRIBUTION WIDTH 13.1 % (11.5-14.0); WHITE BLOOD COUNT 10.3 10^3/uL (4.0-10.5)
[2020-04-07 11:11] LABS: ANION GAP 8 (5-19); BLOOD UREA NITROGEN 23 mg/dL (7-20); CALCIUM 9.8 mg/dL (8.4-10.2); CARBON DIOXIDE 30 mmol/L (22-30); CHLORIDE 99 mmol/L (98-107); GLUCOSE 108 mg/dL (75-110); POTASSIUM 3.7 mmol/L (3.6-5.0)
--- NOTE | 2020-04-07 11:38 | RADIOLOGY REPORT (SQ) ---
EXAM DESCRIPTION: CHEST PA/LATERAL IMAGES COMPLETED DATE/TIME: 04/07/2020 11:27 am REASON FOR STUDY: PRE-OP COMPARISON: 01/31/2020 EXAM PARAMETERS: NUMBER OF VIEWS: two views TECHNIQUE: Digital Frontal and Lateral radiographic views of the chest acquired. RADIATION DOSE: NA LIMITATIONS: none FINDINGS: LUNGS AND PLEURA: No opacities, masses or pneumothorax. No pleural effusion. MEDIASTINUM AND HILAR STRUCTURES: No masses or contour abnormalities. HEART AND VASCULAR STRUCTURES: Heart normal size. No evidence for failure. BONES: No acute findings. HARDWARE: None in the chest. OTHER: No other significant finding. IMPRESSION: NO SIGNIFICANT RADIOGRAPHIC FINDING IN THE CHEST. TECHNICAL DOCUMENTATION: JOB ID: [id number] 2010 [employer]- All Rights Reserved Reading location - IP/workstation name: [email or web address]
--- NOTE | 2020-04-07 18:49 | EKG REPORT ---
SEVERITY:- ABNORMAL ECG - SINUS RHYTHM NONSPECIFIC T ABNORMALITIES, ANT-LAT LEADS : Confirmed by: Katelin Hernandez MD 07-Apr-2020 18:49:07
[~2020-04-14 05:32] MED LIST changes: +ACETAMINOPHEN 1,000 MG/100 ML RTUPB IV ONE; +ACETAMINOPHEN 1,000 MG/100 ML RTUPB IV PRN; +CEFOXITIN SODIUM 2 GM in DEXTROSE 5%-WATER 100 ML IV PRN; +IBUPROFEN 800 MG in NORMAL SALINE 250 ML IV PRN; +LACTATED RINGERS 1000 ML IV PRN; +LIDOCAINE 0.5% INJ-PF (5 MG/ML) 50 ML SDV SUBCUT PRN; -LIDOCAINE 2% JELLY 5 ML TUBE ONE
[2020-04-14] MEDS ORDERED: ALBUTEROL SULFATE 0.083% NEB 2.5 MG/3 ML AMPUL NEB ONE ×2 (06:33→06:45)
[2020-04-14] MEDS ORDERED: LIDOCAINE 2% INJ (20 MG/ML) 20 ML MDV ONE (06:55)
[2020-04-14] MEDS ORDERED: HYDROMORPHONE HCL INJ/PF 2 MG/ML AMPULE ONE (06:56)
[2020-04-14] MEDS ORDERED: FENTANYL CITRATE INJ/PF 100 MCG/2 ML AMPUL ONE (06:56)
[2020-04-14] MEDS ORDERED: MIDAZOLAM 2 MG/2 ML INJ ONE (06:57)
[2020-04-14] MEDS ORDERED: PROPOFOL INJ 200 MG/20 ML VIAL IV ONE (06:57)
[2020-04-14] MEDS ORDERED: BUPIVACAINE HCL 0.25 % INJ/PF (2.5 MG/1 ML) 30 ML VIAL ONE (07:15)
[2020-04-14] MEDS ORDERED: PROMETHAZINE HCL INJ 25 MG/1 ML VIAL ONE (07:33)
[2020-04-14] MEDS ORDERED: ALBUTEROL SULFATE HFA (90 MCG/PUFF) 8 GM MDI IH ONE (07:49)
[2020-04-14] MEDS ORDERED: ONDANSETRON HCL INJ/PF 4 MG/2 ML SDV IV PRN ×2 (11:03→11:51)
[2020-04-14] MEDS ORDERED: MORPHINE SULFATE 10 MG/ML INJ IV PRN ×2 (11:03→11:51)
[2020-04-14] MEDS ORDERED: (PENDING PHARMACY ID) (Albuterol Sulfate [Proair Respiclick] 90 MCG) IH PRN (11:10)
[2020-04-14] MEDS ORDERED: MEPERIDINE HCL/PF INJ 25 MG/1 ML DISP.SYRIN IV PRN (11:51)
[2020-04-14] MEDS ORDERED: DIPHENHYDRAMINE HCL 50 MG/ML VIAL IV PRN (11:51)
[2020-04-14] MEDS ORDERED: FENTANYL CITRATE INJ/PF 100 MCG/2 ML AMPUL IV PRN ×3 (11:51)
[2020-04-14] MEDS ORDERED: ACETAMINOPHEN 1,000 MG/100 ML RTUPB IV SCH (14:00)
[2020-04-14] MEDS ORDERED: NEOSTIGMINE METHYLSULFATE 10 MG/10 ML VIAL ONE (14:12)
[2020-04-14] MEDS ORDERED: DEXAMETHASONE SOD PHOSPHATE INJ 4 MG/1 ML VIAL ONE (14:12)
[2020-04-14] MEDS ORDERED: METOCLOPRAMIDE HCL INJ/PF 10 MG/2 ML SDV ONE (14:12)
[2020-04-14] MEDS ORDERED: SUCCINYLCHOLINE CHLORIDE INJ 200 MG/10 ML VIAL ONE (14:12)
[2020-04-14] MEDS ORDERED: GLYCOPYRROLATE 1 MG/5 ML VIAL ONE (14:12)
[2020-04-14] MEDS ORDERED: ROCURONIUM BROMIDE INJ 50 MG/5 ML VIAL IV ONE (14:12)
[2020-04-14] MEDS ORDERED: ONDANSETRON HCL INJ/PF 4 MG/2 ML SDV ONE (14:12)
[2020-04-14] MEDS: OXYCODONE HCL IR 5 MG TABLET PO PRN ×2 (16:20→22:00)
[2020-04-14] MEDS: CETIRIZINE 10 MG TABLET PO SCH (16:21)
[2020-04-14] MEDS: ESCITALOPRAM OXALATE 10 MG TABLET PO SCH (16:21)
[2020-04-14] MEDS: ACETAMINOPHEN 1,000 MG/100 ML RTUPB IV SCH (17:45)
[2020-04-14] MEDS: MONTELUKAST SODIUM 10 MG TABLET PO SCH (22:00)
[2020-04-14] MEDS: FAMOTIDINE INJ/PF 20 MG/2 ML SDV IV SCH (22:00)
[2020-04-15] MEDS: ACETAMINOPHEN 1,000 MG/100 ML RTUPB IV SCH ×3 (01:06→18:16)
[2020-04-15] MEDS: OXYCODONE HCL IR 5 MG TABLET PO PRN ×4 (05:38→22:15)
[2020-04-15 06:22] LABS: ABSOLUTE BASOPHILS # (AUTO) 0.1 10^3/uL (0.0-0.2); ABSOLUTE LYMPHOCYTES (AUTO) 1.4 10^3/uL (0.5-4.7); ABSOLUTE MONOCYTES (AUTO) 0.8 10^3/uL (0.1-1.4); ABSOLUTE NEUT (AUTO) 15.3 10^3/uL (1.7-8.2); BASOPHILS % (AUTO) 0.5 % (0-2); HEMATOCRIT 38.4 % (36.0-47.0); LYMPHOCYTES % (AUTO) 7.9 % (13-45); MEAN CORPUSCULAR HEMOGLOBIN 30.9 pg (27.0-33.4); MEAN CORPUSCULAR VOLUME 91 fl (80-97); MONOCYTES % (AUTO) 4.7 % (3-13); PLATELET COUNT 248 10^3/uL (150-450); RED BLOOD COUNT 4.22 10^6/uL (3.72-5.28); RED CELL DISTRIBUTION WIDTH 12.9 % (11.5-14.0); SEGMENTED NEUTROPHILS % (AUTO) 86.9 % (42-78); TOTAL CELLS COUNTED % (AUTO) 100 %; WHITE BLOOD COUNT 17.7 10^3/uL (4.0-10.5)
[2020-04-15 06:46] LABS: ANION GAP 7 (5-19); BLOOD UREA NITROGEN 17 mg/dL (7-20); CALCIUM 8.9 mg/dL (8.4-10.2); CARBON DIOXIDE 27 mmol/L (22-30); CHLORIDE 100 mmol/L (98-107); GLUCOSE 141 mg/dL (75-110); POTASSIUM 3.3 mmol/L (3.6-5.0)
--- NOTE | 2020-04-15 08:17 | RADIOLOGY REPORT (SQ) ---
EXAM DESCRIPTION: CHEST SINGLE VIEW IMAGES COMPLETED DATE/TIME: 04/15/2020 7:57 am REASON FOR STUDY: shortness of breath COMPARISON: Chest films 04/07/2020, 01/31/2020 EXAM PARAMETERS: NUMBER OF VIEWS: One view. TECHNIQUE: Single frontal radiographic view of the chest acquired. RADIATION DOSE: NA LIMITATIONS: None. FINDINGS: LUNGS AND PLEURA: No opacities, masses or pneumothorax. No pleural effusion. MEDIASTINUM AND HILAR STRUCTURES: No masses. Contour normal. HEART AND VASCULAR STRUCTURES: Heart normal in size. Normal vasculature. BONES: No acute findings. HARDWARE: None in the chest. OTHER: No other significant finding. IMPRESSION: NO ACUTE RADIOGRAPHIC FINDING IN THE CHEST. TECHNICAL DOCUMENTATION: JOB ID: [id number] 2010 [employer]- All Rights Reserved Reading location - IP/workstation name: [email or web address]
[2020-04-15] MEDS ORDERED: POTASSIUM CHLORIDE 20 MEQ PACKET PO ONE ×2 (08:42→11:30)
[2020-04-15] MEDS ORDERED: (PENDING PHARMACY ID) (Losartan Potassium [Losartan Potassium] 100 MG) PO SCH (10:00)
--- NOTE | 2020-04-15 10:14 | PDOC PROGRESS REPORT ---
Subjective Progress Note for:: 04/15/20 Reason For Visit: HIATAL HERNIA, REFLUX Physical Exam Vital Signs: Temp Pulse Resp BP Pulse Ox 97.7 F 82 16 172/72 H 95 04/15/20 07:40 04/15/20 07:40 04/15/20 07:40 04/15/20 07:40 04/15/20 07:40 Intake & Output 04/14/20 04/15/20 04/16/20 06:59 06:59 06:59 Intake Total 0 2920 Output Total 2525 Balance 0 395 Weight 90.72 kg 95.3 kg Results Laboratory Results: 04/15/20 05:51 04/15/20 05:57 04/15/20 04/15/20 05:51 05:57 WBC 17.7 H RBC 4.22 Hgb 13.0 Hct 38.4 MCV 91 MCH 30.9 MCHC 34.0 RDW 12.9 Plt Count 248 Seg Neutrophils % 86.9 H Sodium 133.9 L Potassium 3.3 L Chloride 100 Carbon Dioxide 27 Anion Gap 7 BUN 17 Creatinine 0.59 Est GFR ( Amer) > 60 Glucose 141 H Calcium 8.9 Impressions: Chest X-Ray 04/15/20 06:00 IMPRESSION: NO ACUTE RADIOGRAPHIC FINDING IN THE CHEST. Assessment & Plan - Diagnosis (1) Hiatal hernia Is this a current diagnosis for this admission?: Yes (2) Acid reflux disease Qualifiers: Esophagitis presence: esophagitis presence not specified Qualified Code(s): K21.9 - Gastro-esophageal reflux disease without esophagitis Is this a current diagnosis for this admission?: Yes - Plan Summary Plan Summary: This is a 49-year-old female status post robot-assisted laparoscopic hiatal hernia repair with Soledad fundoplication. The patient reports some shortness of breath today. I believe this is related to both pain associated with the operation, and her COPD. I have ordered the patient's home respiratory treatments. I have encouraged her to perform incentive spirometry, aggressively. I have encouraged her to get out of bed and ambulate. She is tolerating clear liquids without difficulty. I will advance her to full liquid diet. Her chest x-ray looks good. Continue with current medication regimen. Discontinue Covarrubias. If her breathing improves, plan for discharge tomorrow.
[2020-04-15] MEDS: LOSARTAN POTASSIUM 50 MG TABLET PO SCH (10:25)
[2020-04-15] MEDS: HYDROCHLOROTHIAZIDE 25 MG TABLET PO SCH (10:26)
[2020-04-15] MEDS: CETIRIZINE 10 MG TABLET PO SCH (10:27)
[2020-04-15] MEDS: ESCITALOPRAM OXALATE 10 MG TABLET PO SCH (10:27)
[2020-04-15] MEDS: FAMOTIDINE INJ/PF 20 MG/2 ML SDV IV SCH ×2 (10:31→22:14)
[2020-04-15] MEDS: PANTOPRAZOLE SODIUM 40 MG VIAL IV SCH (10:34)
[2020-04-15] MEDS: FLUTICASONE/VILANTEROL 200-25 MCG/DOSE IH SCH (10:42)
[2020-04-15] MEDS: MONTELUKAST SODIUM 10 MG TABLET PO SCH (22:14)
[2020-04-15] MEDS: FLUTICASONE NASAL SPRAY 50 MCG/SPRY 120 SPRAY/16 GM NASL SCH (22:15)
[2020-04-16] MEDS: ACETAMINOPHEN 1,000 MG/100 ML RTUPB IV SCH ×3 (01:45→18:21)
[2020-04-16] MEDS: OXYCODONE HCL IR 5 MG TABLET PO PRN ×3 (07:41→21:16)
[2020-04-16] MEDS: FLUTICASONE/VILANTEROL 200-25 MCG/DOSE IH SCH (09:47)
[2020-04-16] MEDS: FLUTICASONE NASAL SPRAY 50 MCG/SPRY 120 SPRAY/16 GM NASL SCH ×2 (09:48→21:12)
[2020-04-16] MEDS: HYDROCHLOROTHIAZIDE 25 MG TABLET PO SCH (09:49)
[2020-04-16] MEDS: LOSARTAN POTASSIUM 50 MG TABLET PO SCH (09:49)
[2020-04-16] MEDS: ESCITALOPRAM OXALATE 10 MG TABLET PO SCH (09:50)
[2020-04-16] MEDS: CETIRIZINE 10 MG TABLET PO SCH (09:50)
[2020-04-16] MEDS: FAMOTIDINE INJ/PF 20 MG/2 ML SDV IV SCH ×2 (09:51→21:11)
[2020-04-16] MEDS: PANTOPRAZOLE SODIUM 40 MG VIAL IV SCH (09:52)
--- NOTE | 2020-04-16 12:01 | PDOC PROGRESS REPORT ---
Subjective Progress Note for:: 04/16/20 Reason For Visit: HIATAL HERNIA, REFLUX Physical Exam Vital Signs: Temp Pulse Resp BP Pulse Ox 98.7 F 102 H 16 160/91 H 99 04/16/20 07:35 04/16/20 07:35 04/16/20 07:35 04/16/20 07:35 04/16/20 07:35 Intake & Output 04/15/20 04/16/20 04/17/20 06:59 06:59 06:59 Intake Total 2920 1140 100 Output Total 2525 900 Balance 395 240 100 Weight 95.3 kg 95.3 kg Results Laboratory Results: 04/15/20 05:51 04/15/20 05:57 Impressions: Chest X-Ray 04/15/20 06:00 IMPRESSION: NO ACUTE RADIOGRAPHIC FINDING IN THE CHEST. Assessment & Plan - Diagnosis (1) Hiatal hernia Is this a current diagnosis for this admission?: Yes (2) Acid reflux disease Qualifiers: Esophagitis presence: esophagitis presence not specified Qualified Code(s): K21.9 - Gastro-esophageal reflux disease without esophagitis Is this a current diagnosis for this admission?: Yes - Plan Summary Plan Summary: This is a 49-year-old female status post robot-assisted laparoscopic hiatal hernia repair with Soledad fundoplication. The patient reports improvement in her shortness of breath. She is not requiring supplemental oxygen today. I have continued to encourage aggressive incentive spirometry. She is ambulating in the halls. She is tolerating a full liquid diet. Continue with current medication regimen. Plan for discharge tomorrow.
[2020-04-16] MEDS: MONTELUKAST SODIUM 10 MG TABLET PO SCH (21:12)
[2020-04-17] MEDS: ACETAMINOPHEN 1,000 MG/100 ML RTUPB IV SCH (02:12)
--- NOTE | 2020-04-17 07:05 | PDOC DISCHARGE SUMMARY ---
General - Admit/Disc Date/PCP Admission Date/Primary Care Provider: 04/14/20 05:32 KATIE BLANC, KOKO-Yanira Discharge Date: 04/17/20 - Discharge Diagnosis Final Diagnosis: hiatal hernia, reflux - Assessment Summary: This is a 49-year-old female with a hiatal hernia and severe reflux. She was admitted to the hospital for robot-assisted laparoscopic hiatal hernia repair and Soledad fundoplication. She underwent the procedure on 04/14/2020. Patient tolerated the procedure well. After surgery, she had moderate amounts of pain, requiring narcotic pain medication administration. She also required supplemental oxygen for a time. Over the next several days, the patient improved significantly. She began tolerating a diet, ambulating, and by 04/17/2020 it was felt that she had reached maximal hospital benefit and was fit for discharge. - Additional Information Resuscitation Status: Full Code Discharge Diet: Full Liquids Discharge Activity: No Lifting Over 10 Pounds, No Lifting/Push/Pulling Referrals: CURT BUNCH MD [ACTIVE STAFF] - (04/14 S/P HERNIA REPAIR ) Prescriptions: Hydrocodone/Acetaminophen [Duncan 10-325 mg Tablet] 1 tab PO Q6HP PRN #28 tablet PRN Reason: Home Medications: Escitalopram Oxalate [Lexapro] 20 mg PO DAILY 03/01/19 Fluticasone Propionate [Flonase Nasal [place] 50 Mcg/[place] 16 gm] 1 spray NASL Q12 03/01/19 Losartan Potassium 100 mg PO DAILY 03/01/19 Simvastatin [Zocor 20 mg Tablet] 20 mg PO QHS 03/01/19 Budesonide/Formoterol Fumarate [Symbicort HFA 160-4.5 mcg Inhaler 6 gm] 2 puff IH BID 08/27/19 Cetirizine HCl [Zyrtec] 10 mg PO DAILY 08/27/19 Montelukast Sodium [Singulair 10 mg Tablet] 10 mg PO QHS 08/27/19 Omeprazole Magnesium [Prilosec Otc] 40 mg PO DAILY 08/27/19 Albuterol Sulfate [Proair Respiclick] 2 puff IH Q4HP PRN 01/28/20 Atomoxetine HCl 18 mg PO DAILY 04/07/20 Hydrochlorothiazide [Hydrodiuril 25 mg Tablet] 25 mg PO DAILY 04/14/20 Multivitamin [Daily Multiple Vitamin] 1 each PO DAILY 04/14/20 Sucralfate [Carafate 1 gm Tablet] 1 gm PO QID 04/14/20 Trazodone HCl [Desyrel 50 mg Tablet] 50 mg PO QHS 04/14/20 Hydrocodone/Acetaminophen [Duncan 10-325 mg Tablet] 1 tab PO Q6HP PRN #28 tablet 04/17/20 Additional Information: Discharge home. Diet: Full liquid diet. Activity: No lifting greater than 10 pounds x 6 weeks. Follow-up with me at [facility] in 7 to 10 days. Okay to shower. No swimming pools or tub baths x2 weeks. No carbonated beverages. Duncan 10/325 mg p.o. every 6 hours as needed pain. History of Present Illiness History of Present Illness: BLANCHE CAMACHO is a 49 year old female Physical Exam Vital Signs: Temp Pulse Resp BP Pulse Ox 98.6 F 101 H 18 168/94 H 95 04/17/20 00:00 04/17/20 00:00 04/17/20 00:00 04/17/20 00:00 04/17/20 00:00 Intake & Output 04/15/20 04/16/20 04/17/20 06:59 06:59 06:59 Intake Total 2920 1140 1260 Output Total 2525 900 Balance 051 641 8948 Weight 95.3 kg 95.3 kg 95.3 kg Results Laboratory Results: WBC 17.7 10^3/uL (4.0-10.5) H 04/15/20 05:51 RBC 4.22 10^6/uL (3.72-5.28) 04/15/20 05:51 Hgb 13.0 g/dL (12.0-15.5) 04/15/20 05:51 Hct 38.4 % (36.0-47.0) 04/15/20 05:51 MCV 91 fl (80-97) 04/15/20 05:51 MCH 30.9 pg (27.0-33.4) 04/15/20 05:51 MCHC 34.0 g/dL (32.0-36.0) 04/15/20 05:51 RDW 12.9 % (11.5-14.0) 04/15/20 05:51 Plt Count 248 10^3/uL (150-450) 04/15/20 05:51 Lymph % (Auto) 7.9 % (13-45) L 04/15/20 05:51 [place] % (Auto) 4.7 % (3-13) 04/15/20 05:51 Eos % (Auto) 0.0 % (0-6) 04/15/20 05:51 Baso % (Auto) 0.5 % (0-2) 04/15/20 05:51 Absolute Neuts (auto) 15.3 10^3/uL (1.7-8.2) H 04/15/20 05:51 Absolute Lymphs (auto) 1.4 10^3/uL (0.5-4.7) 04/15/20 05:51 Absolute Monos (auto) 0.8 10^3/uL (0.1-1.4) 04/15/20 05:51 Absolute Eos (auto) 0.0 10^3/uL (0.0-0.6) 04/15/20 05:51 Absolute Basos (auto) 0.1 10^3/uL (0.0-0.2) 04/15/20 05:51 Seg Neutrophils % 86.9 % (42-78) H 04/15/20 05:51 Sodium 133.9 mmol/L (137-145) L 04/15/20 05:57 Potassium 3.3 mmol/L (3.6-5.0) L 04/15/20 05:57 Chloride 100 mmol/L (98-107) 04/15/20 05:57 Carbon Dioxide 27 mmol/L (22-30) 04/15/20 05:57 Anion Gap 7 (5-19) 04/15/20 05:57 BUN 17 mg/dL (7-20) 04/15/20 05:57 Creatinine 0.59 mg/dL (0.52-1.25) 04/15/20 05:57 Est GFR ( Amer) > 60 (>60) 04/15/20 05:57 Est GFR (MDRD) Non-Af > 60 (>60) 04/15/20 05:57 Glucose 141 mg/dL (75-110) H 04/15/20 05:57 Calcium 8.9 mg/dL (8.4-10.2) 04/15/20 05:57 COVID-19 Source NASOPHARYNGEAL 04/07/20 09:38 COVID-19 (DON) NOT DETECTED 04/07/20 09:38 Blood Type O NEGATIVE 04/14/20 06:07 Antibody Screen NEGATIVE 04/14/20 06:07 Impressions: Chest X-Ray 04/07/20 10:54 IMPRESSION: NO SIGNIFICANT RADIOGRAPHIC FINDING IN THE CHEST. Chest X-Ray 04/15/20 06:00 IMPRESSION: NO ACUTE RADIOGRAPHIC FINDING IN THE CHEST.
[2020-04-17 08:10] VITALS: BP 133/83
[2020-04-17] MEDS: OXYCODONE HCL IR 5 MG TABLET PO PRN (08:30)
--- NOTE | 2020-04-19 07:09 | Operative Report ---
Nonrecallable Operative Report DATE OF SURGERY: 04/14/20 PREOPERATIVE DIAGNOSIS: 1 hiatal hernia. 2. Reflux disease. POSTOPERATIVE DIAGNOSIS: Same as above OPERATION: 1. Robot-assisted laparoscopic hiatal hernia repair. 2. Soledad fundoplication. 3. EGD. SURGEON: CURT BUNCH 1ST CONSTRUCTION HELPER: SHAYY GARCIA ANESTHESIA: GA TISSUE REMOVED OR ALTERED: None COMPLICATIONS: None apparent ESTIMATED BLOOD LOSS: 50 cc PROCEDURE: Drains/implants: None. Procedure in detail: After informed consent was obtained, the patient was brought to the operating room and laid in the supine position. The area of the abdomen was prepped and draped in a normal sterile fashion. An incision was the n created 2 fingerbreadths above and lateral to the umbilicus on the left. Dissection was carried through the subcutaneous tissues using sharp and blunt dissection. The anterior sheath was incised. The rectus muscle was spread, and the posterior sheath was incised. The abdomen was then entered sharply. The balloon trocar was inserted, and pneumoperitoneum was achieved. Next, a left upper quadrant 8 mm robotic trocar, a left lateral 8 mm robotic trocar, and a right upper quadrant 8 mm robotic trocar were placed under direct laparoscopic visualization. A 5 mm right lateral standard laparoscopic trocar was also placed under laparoscopic visualization. Next, the liver retractor was placed on the left lobe of the liver, through the 5 mm trocar. The robot was then brought over the patient and docked appropriately. I assumed my position at the surgeon's console. Dissection was then begun at the pars flaccida. Using electrocautery, the pars flaccida was taken down. The right lizabeth was then brought into view. The lizabeth was cleaned using a mixture of electrocautery and blunt dissection. Careful dissection was employed, not to injure the neurovascular structures in the area. The dissection was carried posteriorly to the left lizabeth of the diaphragm. This was also cleaned in similar fashion. Once the posterior dissection was carried as laterally as was possible, attention was turned to division of the short gastrics. The vessel sealing device was then used to divide the short gastric arteries. This was done on the lateral aspect of the stomach, immediately adjacent to the stomach. This was done up the fundus, to the left lizabeth. Electrocautery was then used to clean the remainder of the left lizabeth. Next, the anterior dissection was performed. This was done with great care, so as not to injure the vagus nerves. The vagus nerves were identified and spared along their course. The dissection was taken proximally, to ensure 3 cm of intra-abdominal esophagus. This was successful. After the dissection was completed, a [place] drain was passed posterior to the esophagus. I then inserted a 56 Swazi bougie into the oropharynx, and into the esophagus. This passed easily down to approximately 45 cm. Once the bougie was in place, attention was turned to the hernia repair. 2-0 Ethibond suture was used in [id number] fashion to close the posterior crura. 2 sutures were used to reapproximate the defect. It appeared to come together without tension. Next, the fundus was wrapped posteriorly. This was also done without tension. A complete 360, loose Soledad fundoplication was then performed. This was done with 2-0 Ethibond suture. The first stitch consisted of posterior fundus to anterior fundus, with incorporated esophagus into the suture. 3 more sutures were used to attach the posteriorly wrapped fundus to the anterior fundus. During the subsequent sutures, the bougie was removed by anesthesia. Next, a gastropexy was performed. The fundus was tacked to the right and left lizabeth using interrupted 2-0 Ethibond sutures. After this was completed, attention was turned to performing of the EGD. The flexible gastroscope was inserted into the oropharynx. It was passed down the esophagus, to the GE junction. The GE junction appeared free of any damage or trauma. There was no linear tearing or evidence of perforation. The scope pas sed easily into the stomach. Retroflexion maneuver was performed inside the stomach noting an intact fundoplication. The scope was withdrawn into the distal esophagus once again. The Z line appeared to lie within the abdominal cavity. Once this was confirmed, the scope was removed from the patient, and this portion of the procedure was concluded. I then scrubbed back into the case. The liver retractor was removed. The robot was then undocked, and attention was turned to fascial closure. 0 Vicryl suture was used in [id number] fashion with the aid of the Romaine-Tashi device to close the 12 mm trocar defect. The 8 mm trocar defects were closed using 0 Vicryl suture in simple interrupted fashion, again with the aid of the Romaine- Tashi device. Once the defects were closed, pneumoperitoneum was relieved. The overlying skin was closed using 4-0 Vicryl Rapide suture in subcuticular fashion. Dressings were then placed, and the procedure was concluded. All sponge, instrument, and needle counts were correct x2. Condition: Stable. Shayy Garcia PA-C was scrubbed and present the entirety of the procedure. She assisted with all portions of the procedure including opening of the abdomen, docking of the robot, exchanging of the robotic instruments, closure of the fascia, and closure of the skin.
== END 2020-04-17 09:10 | disposition home or self-care (01) ==
LOC: INTOOBSV 05:32 → INOR 05:32 → EDSTATUS 07:30 → 4S 12:52
PROVIDERS: ADMIT Surgery; ATTEND Surgery
DX: K44.9 Diaphragmatic hernia without obstruction or gangrene (principal); K21.9 Gastro-esophageal reflux disease without esophagitis; G89.18 Other acute postprocedural pain; J44.9 Chronic obstructive pulmonary disease, unspecified; E78.00 Pure hypercholesterolemia, unspecified; J31.0 Chronic rhinitis; F41.9 Anxiety disorder, unspecified; F32.9 Major depressive disorder, single episode, unspecified; Z79.51 Long term (current) use of inhaled steroids; Z79.899 Other long term (current) drug therapy; Z03.818 Encounter for observation for suspected exposure to other biological agents ruled out; Z98.51 Tubal ligation status
CPT/HCPCS: 93005; 86900; 86901; 36415 ×3; 86850; 84132; 85025; 85027; 87635; 80048 ×2; 71046; 71045; 94799; 93010; 00790; 43280; G0378 ×4; J2250; J3490 ×20; J1100; J2765; J2270; J2710; J1170; C9113 ×2; J2550; J0330; J2405; J7060; J7050; J2704; S0028 ×3; J0131 ×4; J1741; J0694; 790; J3010

== ENCOUNTER → 2020-09-01 | Outpatient (CLI) | payer MEDICAID ==
[2020-09-01 12:26] LABS: ABSOLUTE EOSINOPHILS # (AUTO) 0.1 10^3/uL (0.0-0.6); ABSOLUTE LYMPHOCYTES (AUTO) 2.1 10^3/uL (0.5-4.7); ABSOLUTE MONOCYTES (AUTO) 0.5 10^3/uL (0.1-1.4); ABSOLUTE NEUT (AUTO) 7.6 10^3/uL (1.7-8.2); BASOPHILS % (AUTO) 0.5 % (0-2); EOSINOPHILS % (AUTO) 0.7 % (0-6); HEMATOCRIT 38.2 % (36.0-47.0); HEMOGLOBIN 13.2 g/dL (12.0-15.5); LYMPHOCYTES % (AUTO) 20.4 % (13-45); MEAN CORPUSCULAR HEMOGLOBIN 31.4 pg (27.0-33.4); MEAN CORPUSCULAR HGB CONC 34.6 g/dL (32.0-36.0); MEAN CORPUSCULAR VOLUME 91 fl (80-97); MONOCYTES % (AUTO) 4.7 % (3-13); PLATELET COUNT 304 10^3/uL (150-450); RED BLOOD COUNT 4.21 10^6/uL (3.72-5.28); RED CELL DISTRIBUTION WIDTH 13.1 % (11.5-14.0); SEGMENTED NEUTROPHILS % (AUTO) 73.7 % (42-78); TOTAL CELLS COUNTED % (AUTO) 100 %; WHITE BLOOD COUNT 10.3 10^3/uL (4.0-10.5)
[2020-09-01 12:50] LABS: ANION GAP 8 (5-19); BLOOD UREA NITROGEN 19 mg/dL (7-20); CALCIUM 9.9 mg/dL (8.4-10.2); CARBON DIOXIDE 27 mmol/L (22-30); CHLORIDE 103 mmol/L (98-107); GLUCOSE 101 mg/dL (75-110); POTASSIUM 3.9 mmol/L (3.6-5.0)
--- NOTE | 2020-09-01 13:40 | RADIOLOGY REPORT (SQ) ---
EXAM DESCRIPTION: CHEST PA/LATERAL IMAGES COMPLETED DATE/TIME: 09/01/2020 11:59 am REASON FOR STUDY: PREOP COMPARISON: 04/15/2020 EXAM PARAMETERS: NUMBER OF VIEWS: two views TECHNIQUE: Digital Frontal and Lateral radiographic views of the chest acquired. RADIATION DOSE: NA LIMITATIONS: none FINDINGS: LUNGS AND PLEURA: Minimal linear opacity at the left costophrenic angle, likely atelectasi s. No other evidence of acute airspace disease. No pleural effusion or pneumothorax. MEDIASTINUM AND HILAR STRUCTURES: No masses or contour abnormalities. HEART AND VASCULAR STRUCTURES: Heart normal size. No evidence for failure. BONES: No acute findings. HARDWARE: None in the chest. OTHER: No other significant finding. IMPRESSION: Minimal left basilar linear opacity, likely atelectasis. No other evidence of acute car diopulmonary process. TECHNICAL DOCUMENTATION: JOB ID: [id number] 2010 [employer]- All Rights Reserved Reading location - IP/workstation name: [email or web address]
--- NOTE | 2020-09-01 18:05 | EKG REPORT ---
SEVERITY:- NORMAL ECG - SINUS RHYTHM : Confirmed by: Kael Marcum 01-Sep-2020 18:05:10
== END ==
LOC: OD 10:49
PROVIDERS: ATTEND Orthopaedic Surgery
DX: Z01.810 Encounter for preprocedural cardiovascular examination (principal); Z01.811 Encounter for preprocedural respiratory examination; Z01.812 Encounter for preprocedural laboratory examination; G56.02 Carpal tunnel syndrome, left upper limb
CPT/HCPCS: 36415; 71046; 80048; 85025; 93005; 93010

== ENCOUNTER → 2020-10-05 | Outpatient (CLI) | payer MEDICAID ==
[2020-10-06 09:35] LABS: ABSOLUTE BASOPHILS # (AUTO) 0.1 10^3/uL (0.0-0.2); ABSOLUTE EOSINOPHILS # (AUTO) 0.2 10^3/uL (0.0-0.6); ABSOLUTE LYMPHOCYTES (AUTO) 2.4 10^3/uL (0.5-4.7); ABSOLUTE MONOCYTES (AUTO) 0.5 10^3/uL (0.1-1.4); ABSOLUTE NEUT (AUTO) 6.8 10^3/uL (1.7-8.2); BASOPHILS % (AUTO) 0.6 % (0-2); EOSINOPHILS % (AUTO) 2.2 % (0-6); HEMATOCRIT 37.7 % (36.0-47.0); HEMOGLOBIN 12.8 g/dL (12.0-15.5); MEAN CORPUSCULAR HEMOGLOBIN 30.5 pg (27.0-33.4); MEAN CORPUSCULAR HGB CONC 33.9 g/dL (32.0-36.0); MEAN CORPUSCULAR VOLUME 90 fl (80-97); MONOCYTES % (AUTO) 5.2 % (3-13); PLATELET COUNT 327 10^3/uL (150-450); RED BLOOD COUNT 4.19 10^6/uL (3.72-5.28); RED CELL DISTRIBUTION WIDTH 13.1 % (11.5-14.0); TOTAL CELLS COUNTED % (AUTO) 100 %; WHITE BLOOD COUNT 9.9 10^3/uL (4.0-10.5)
[2020-10-06 10:02] LABS: ANION GAP 9 (5-19); BLOOD UREA NITROGEN 19 mg/dL (7-20); CALCIUM 9.9 mg/dL (8.4-10.2); CARBON DIOXIDE 28 mmol/L (22-30); CHLORIDE 102 mmol/L (98-107); GLUCOSE 100 mg/dL (75-110); POTASSIUM 3.7 mmol/L (3.6-5.0)
== END ==
LOC: OD 09:13
PROVIDERS: ATTEND Orthopaedic Surgery
DX: Z01.812 Encounter for preprocedural laboratory examination (principal); G56.01 Carpal tunnel syndrome, right upper limb; J45.909 Unspecified asthma, uncomplicated; I10 Essential (primary) hypertension
CPT/HCPCS: 36415; 80048; 85025

== ENCOUNTER → 2020-12-05 | Outpatient (CLI) | payer MEDICAID ==
--- NOTE | 2020-12-05 11:24 | WOMENS IMAGING REPORT ---
EXAM DESCRIPTION: 3D SCREENING MAMMO BILAT IMAGES COMPLETED DATE/TIME: 12/05/2020 11:09 am REASON FOR STUDY: ROUTINE SCREENING MAMMOGRAM Z12.31 Z12.31 ENCNTR SCREEN MAMMOGRAM FOR MALIGNANT N EOPLASM OF SAMANTHA COMPARISON: 11/18/2019, 11/11/2018, EXAM PARAMETERS: Views: Standard craniocaudal and mediolateral oblique views of each breast recorded using digital acquisition and breast tomosynthesis. Read with the assistance of CAD. .[facility] - [employer] Version 9.2 LIMITATIONS: None. FINDINGS: No suspicious masses, suspicious calcifications or architectural distortion. No areas of c oncern. IMPRESSION: NEGATIVE MAMMOGRAM. BIRADS 1. BREAST DENSITY: b. There are scattered areas of fibroglandular density. BIRAD: ASSESSMENT: 1 NEGATIVE RECOMMENDATION: ROUTINE SCREENING COMMENT: The patient has been notified of the results by letter per MQSA requirements. Additional no tification policies are in place for contacting patient with suspicious or incomplete findings. Quality ID #225: The [employer] recommends an annual screening mammogram for women aged 40 years or over. This facility utilizes a reminder system to ensure that all patients receive reminder letters, and/or direct phone calls for appointments. This includes reminders for routine scr eening mammograms, diagnostic mammograms, or other Breast Imaging Interventions when appropriate. Th is patient will be placed in the appropriate reminder system. TECHNICAL DOCUMENTATION: FINDING NUMBER: (1) ASSESSMENT: (1) JOB ID: [id number] 2010 [employer]- All Rights Reserved Reading location - IP/workstation name: [email or web address]
== END ==
LOC: WI 11:00
PROVIDERS: ATTEND Nurse Practitioner Family
DX: Z12.31 Encounter for screening mammogram for malignant neoplasm of breast (principal)
CPT/HCPCS: 77063; 77067